=== PATIENT | male | born 1975 | race Caucasian/White ===

== ENCOUNTER → 2021-06-22 08:40 | Outpatient (BNVA) | payer OTHER, SELFPAY | PROVIDERS: Visit Provider Physician Assistant Medical | DX: M23.92 Unspecified internal derangement of left knee (principal) | CPT/HCPCS: 73562; 99203 ==

== ENCOUNTER → 2021-06-28 08:44 | Outpatient (BNVA) | payer OTHER, SELFPAY | PROVIDERS: Visit Provider Physician Assistant Medical | DX: M23.92 Unspecified internal derangement of left knee (principal) | CPT/HCPCS: 99213 ==

== ENCOUNTER 2021-07-13 09:53 | Outpatient (RCR) | payer OTHER, SELFPAY ==
--- NOTE | 2021-07-13 11:04 | MHC.PT.EP ---
[facility] [place] [facility] [place] [facility] [place] [facility] [address] eClina Ortega [address] [phone] F: [phone] F: [phone] F: [phone] F: [phone] Physical Therapy Plan of Care Date of Evaluation: Date of Surgery: Diagnosis: L knee internal derangement Assessment: 46 y/o M referred to PT from work connection wt L knee internal derangement. Injury occurred while at work on 06/21/21, he stepped down off ~7 step and slipped on wet floor and his knee twisted and collapsed inward. He went to ED following injury but it was packed so he left and went to work connection the next day. He had one week off and then was placed on light duty. He f/u with work connection in 2 days and anticipates RTW full duty. He initially had pain and difficulty with stairs, walking, weightbearing and transitional movement. However he reports he has been painfree the past1-2 weeks and has starting walking more and performing stairs in step through pattern. No current limitations at this time per patient. He presented WF for ROM and strength and his functional movements were not impaired. He demonstrated good mechanics with functional squat, 8 and 12 forward step-ups and downs without pain. At this time, we will place his chart on hold for 3 weeks pending RTW and increase in activity; if he has an increase in pain or limitations, will re-assess at that point and if we do not hear back in 3 weeks, we will d/c chart. Frequency and Duration: The patient will be seen Chart on hold pending return to work Short Term Goals: No goals at this time. If return to PT, will reassess then and create goals. Dean Of Admissions Goals: No goals at this time Treatment Plan: Modalities to reduce pain, spasms and effusion. Manual therapy to restore motion and function. Therapeutic exercise to improve strength and flexibility. Neuromuscular re-education for posture and balance. Therapeutic activities to return to functional activities of daily living. Electronically signed by: Akanksha Madsen PT Please sign and return to therapist. Thank you for your referral.
--- NOTE | 2021-08-18 11:36 | MHC.PT.DC ---
[facility] [place] [facility] [place] [facility] [place] [facility] [address] Celina Ortega [address] [phone] F: [phone] F: [phone] F: [phone] F: [phone] Physical Therapy Discharge Report Diagnosis: L knee internal derangement Date of Surgery: Date of Evaluation: 07/13/21 Date of Discharge: 08/18/21 Treatments to Date: 1 Cancellations to Date: 0 No Shows to Date: 0 Discharge Status: Discharge Summary: During initial evaluation, pt was feeling better without pain or impairments, He presented WFL for ROM and strength and his functional movements were not impaired. He demonstrated good mechanics with functional squat, 8 and 12 forward step-ups and downs without pain. His chart was placed on hold in case of recurrence of sx for 3 weeks and now will d/c chart. Electronically signed by: Akanksha Madsen PT Please sign and return to therapist. Thank you for your referral.
== END 2021-08-18 11:36 | disposition home or self-care (01) ==
LOC: HO.PT 09:53
PROVIDERS: Visit Provider Physician Assistant Medical
DX: M23.92 Unspecified internal derangement of left knee (principal)
CPT/HCPCS: 97161

== ENCOUNTER → 2021-07-15 09:21 | Outpatient (BNVA) | payer OTHER, SELFPAY | PROVIDERS: Visit Provider Physician Assistant Medical | DX: M23.92 Unspecified internal derangement of left knee (principal); Z91.81 History of falling | CPT/HCPCS: 99213 ==